=== PATIENT | male | born 1990 | race Caucasian/White ===

== ENCOUNTER 2017-07-26 03:10 | Emergency (ER) | payer SELFPAY ==
[~2017-07-26] VITALS: Ht 185.4 cm; Wt 90.7 kg
[2017-07-26] MEDS ORDERED: ALEVE220 MG PO (03:38)
[2017-07-26] MEDS ORDERED: CLEOCIN HCL300 MG PO (03:38)
[2017-07-26] MEDS ORDERED: ADVIL200 M1 PO (03:40)
[2017-07-26] MEDS ORDERED: CEPHALEXIN500 MG PO (05:14)
[2017-07-26] MEDS ORDERED: TRAMADOL HCL50 MG PO (05:14)
== END 2017-07-26 05:40 | disposition home or self-care (01) ==
LOC: ED 03:10
DX: K08.89 Other specified disorders of teeth and supporting structures (principal); F17.200 Nicotine dependence, unspecified, uncomplicated; Z88.0 Allergy status to penicillin; Z79.2 Long term (current) use of antibiotics
CPT/HCPCS: 99283

== ENCOUNTER 2020-07-11 13:44 | Emergency (ER) | payer SELFPAY ==
[~2020-07-11] VITALS: Ht 185.4 cm; Wt 104.3 kg
[~2020-07-11 13:44] MED LIST: ADVIL200 M1 PO; ALEVE220 MG PO; CEPHALEXIN500 MG PO; CLEOCIN HCL300 MG PO; TRAMADOL HCL50 MG PO
[2020-07-11] MEDS ORDERED: PENICILLIN V P500 MG PO (15:08)
[2020-07-11] MEDS ORDERED: CLEOCIN HCL300 MG PO (15:10)
== END 2020-07-11 15:39 | disposition home or self-care (01) ==
LOC: ED 13:44
DX: K04.7 Periapical abscess without sinus (principal); F17.200 Nicotine dependence, unspecified, uncomplicated; Z88.0 Allergy status to penicillin
CPT/HCPCS: 99283; A9270

== ENCOUNTER 2021-11-16 22:28 | Emergency (ER) | payer OTHER ==
[~2021-11-16] VITALS: Ht 185.4 cm; Wt 104.3 kg
[~2021-11-16 22:28] MED LIST changes: +PENICILLIN V P500 MG PO
[2021-11-16] MEDS ORDERED: NAPROSYN500 MG PO (22:53)
[2021-11-16] MEDS ORDERED: CEPHALEXIN500 M1 PO (22:53)
[2021-11-16] MEDS ORDERED: ULTRAM50 MG PO (22:53)
== END 2021-11-16 23:25 | disposition home or self-care (01) ==
LOC: ED 22:28
DX: K02.9 Dental caries, unspecified (principal); F17.200 Nicotine dependence, unspecified, uncomplicated; Z88.0 Allergy status to penicillin; Z79.899 Other long term (current) drug therapy
CPT/HCPCS: 96372; 99282; A9270; J1885